=== PATIENT | male | born 2000 | race African-American/Black ===

== ENCOUNTER 2023-10-10 14:19 | Emergency (ER) | payer OTHER ==
--- NOTE | 2023-10-10 16:11 | ED Physician Documentation ---
PD HPI UPPER EXT INJURY - Stated complaint Stated Complaint: R KNEE PX - Chief complaint Chief Complaint: Ext Problem - History obtained from History obtained from: Patient - Additonal information Additional information: He injured his right knee playing basketball about a year ago. He was seen in [place] and referred for an MRI but it fell through. He kind of forgot about it because it got better on its own but recently it has been hurting again. It is kind of diffuse knee pain and worse with walking or bending. PD PAST MEDICAL HISTORY - Past Medical History Past Medical History: No Cardiovascular: None Respiratory: Asthma Neuro: None Endocrine/Autoimmune: None GI: None : None HEENT: None Psych: None Musculoskeletal: None Derm: None - Past Surgical History Past Surgical History: Yes General: Other - Present Medications Home Medications: Ambulatory Orders Medication Instructions Recorded Confirmed Albuterol Sulf [Ventolin Hfa 1 - 2 puffs INH Q4HR PRN 10/10/23 10/10/23 Inhaler] Budesonide/Formoterol Fumarate 10.2 gm IH DAILY 10/10/23 10/10/23 [Symbicort 80-4.5 Mcg Inhaler] - Allergies Allergies/Adverse Reactions: Allergies Allergy/AdvReac Type Severity Reaction Status Date / Time No Known Drug Allergies Allergy Verified 10/10/23 14:34 - Social History Does the pt smoke?: No Smoking Status: Never smoker Does the pt drink ETOH?: No Does the pt have substance abuse?: No - Immunizations Immunizations are current?: Yes - POLST Patient has POLST: No PD ED PE NORMAL - Vitals Vital signs reviewed: Yes - General General: Alert and oriented X 3, No acute distress - Extremities Extremities: Other (Right knee is visually normal without effusion. There is no tenderness anywhere. He has full and painless range of motion. Ligamentous testing is negative. Grind testing is normal.) - Neuro Neuro: Alert and oriented X 3, Normal speech Results - Vitals Vitals: Vital Signs - 24 hr 10/10/23 10/10/23 14:35 16:16 Temperature 36.8 C 36.1 C L Heart Rate 94 89 Respiratory 16 16 Rate Blood Pressure 131/73 H 128/58 L O2 Saturation 97 99 Oxygen O2 Source Room air - Rads (name of study) 4 view right knee x-ray was negative/normal Relevant Findings:: Final report received, EMP independent interpretation of test PD Medical Decision Making - ED course ED course: Chronic right knee pain with normal exam after remote injury and negative x- rays. Placed in an immobilizer and recommended orthopedic follow-up. No EMC present. Departure - Departure Disposition: 01 Home, Self Care Clinical Impression: Internal derangement of right knee Condition: Good Record reviewed to determine appropriate education?: Yes Instructions: ED Meniscal Injury Knee Poss Follow-Up: [facility] [Provider Group] Comments: The x-ray looks okay but I suspect she may have a soft tissue injury in the right knee. Follow-up with the orthopedic clinic, call the office listed on this form. You do not need to wear the splint all the time but you can wear it when up and around. You can take a anti-inflammatory medication such as ibuprofen per package instructions for pain. Forms: PCP List, Activity restrictions Discharge Date/Time: 10/10/23 16:16
[2023-10-10 16:20] VITALS: BP 128/58; O2SAT 99
--- NOTE | 2023-10-10 16:52 | XRAY Report ---
PROCEDURE: Knee 4+V RT INDICATIONS: Trauma TECHNIQUE: 4 views of the knee(s) were acquired. COMPARISON: None. FINDINGS: Bones: No fractures or dislocations. No suspicious bony lesions. Soft tissues: Moderate knee joint effusion. No suspicious soft tissue calcifications or masses. IMPRESSION: No acute bony abnormality. Moderate knee joint effusion. If pain persists with conservative managemen t, consider repeat x-ray in 10-14 days or cross-sectional imaging. Reviewed by: Deni Baxter MD on 10/10/2023 4:50 PM PDT Approved by: Deni Baxter MD on 10/10/2023 4:50 PM PDT Station ID: [id number]
== END 2023-10-10 16:16 | disposition home or self-care (01) ==
LOC: ED 14:19
DX: M23.91 Unspecified internal derangement of right knee (principal); G89.21 Chronic pain due to trauma; S89.91XS Unspecified injury of right lower leg, sequela; X58.XXXS Exposure to other specified factors, sequela
CPT/HCPCS: 99283

== ENCOUNTER 2023-11-07 09:44 | Outpatient (CLI) | payer OTHER ==
--- NOTE | 2023-11-07 14:59 | XRAY Report ---
PROCEDURE: Knee 4+V RT INDICATIONS: RIGHT KNEE PAIN TECHNIQUE: 4 views of the knee(s) were acquired. COMPARISON: X-ray knee 10/10/2023 FINDINGS: Bones: No fractures or dislocations. No suspicious bony lesions. No erosions or appreciable joint space narrowing. No periarticular osteophytes. Soft tissues: Mild knee joint effusion. No suspicious soft tissue calcifications or masses. IMPRESSION: Mild left effusion. No visualized acute osseous abnormality. If concern persists, MRI is recommended. No visualized arthritic change. Reviewed by: Kelly Syed MD on 11/07/2023 2:57 PM PDT Approved by: Kelly Syed MD on 11/07/2023 2:57 PM PDT Station ID: [id number]
== END 2023-11-07 09:45 | disposition home or self-care (01) ==
LOC: DI 09:44
PROVIDERS: ATTEND Physician Assistant Surgical
DX: M25.461 Effusion, right knee (principal)